=== PATIENT | female | born 1975 | race Caucasian/White ===

== ENCOUNTER 2022-02-12 10:29 | Emergency (ER) | payer OTHER, SELFPAY ==
--- NOTE | ~2022-02-12 | CT_ITS ---
EXAMINATION: CT abdomen pelvis w con DATE: 02/12/2022 11:52 INDICATION: Abdominal pain, rectal pressure TECHNIQUE: Computed tomography (CT) of the abdomen and pelvis was performed with 100 CC Omnipaque 350 intravenous contrast. Automated exposure control and iterative reconstruction technique were employe d. Exam dose: 788.79 mGy-cm total exam DLP. COMPARISON: None. FINDINGS: Minimal bilateral lower lung atelectasis. Normal heart size. No pericardial or pleural effu christian. Small sliding hiatal hernia. Approximately 7.7 mm focal area of hypoattenuation in the right hepatic lobe (series 3 image 18 and 1 9). Indeterminate 16 x 12 mm hypoattenuating lesion of the anterior left lateral aspect of the lateral se gment of the left hepatic lobe. Recommend comparison with any prior available CT abdomen examinations or perhaps liver MRI if no prior studies are available. The liver is otherwise unremarkable. The gallbladder is present. No gallbladder wall thickening or pericholecystic fluid or fat stranding. No bile duct or pancreatic duct dilatation. No pancreatic mass lesion or calcification. Normal morphology of the adrenal glands. No renal mass lesion or urinary tract calculus or hydroureteronephrosis. Normal caliber of the abdominal aorta. No intraperitoneal or retroperitoneal or pelvic mass lesion or adenopathy or ascites. The urinary bladder appears unremarkable. Status post hysterectomy. There are multiple small bowel air-fluid levels fluid distended but nondilated small bowel, suggestin g enteritis or mild adynamic ileus. There is a prominent amount of fecal material in the rectum and c olon. No bowel obstruction is evident. Normal appendix. No intraperitoneal free air. Probable bone island of L1 vertebral body. No suspicious osteolytic or osteoblastic lesions are sugge sted. IMPRESSION: Prominent amount of fecal material in the rectum and colon, without obstruction Nondilated fluid containing small bowel with multiple small bowel air-fluid levels; consider enteriti s or mild adynamic ileus Normal appendix Small sliding hiatal hernia There are couple of nonspecific hypoattenuating hepatic lesions; recommend comparison with any prior available CT examination. If not available, consider MR examination for further evaluation Reviewed, dictated and finalized at [facility] Reviewed, dictated and finalized at [facility] IMPRESSION: Prominent amount of fecal material in the rectum and colon, withou t obstruction Nondilated fluid containing small bowel with multiple small bowel air-fluid lev els; consider enteritis or mild adynamic ileus Normal appendix Small sliding hiatal hernia There are couple of nonspecific hypoattenuating hepatic lesions; recommend comp arison with any prior available CT examination. If not available, consider MR e xamination for further evaluation
[2022-02-12 10:36] VITALS: BP 150/99; PULSE 87; RESP 221; TEMP 37.8; O2SAT 100
[2022-02-12 11:11] LABS: Basophils Percent Auto 0.5 % (0.2-1.2); Eosinophils Absolute Auto 0.1 K/mm3 (0-0.3); Eosinophils Percent Auto 1.1 % (0-4.4); Hematocrit 41.3 % (37.0-47.0); Hemoglobin 13.4 g/dL (12.0-15.0); Immature Granulocyte Absolute 0.02 K/mm3 (0.00-0.031); Immature Granulocyte Percent A 0.3 % (0-0.5); Lymphocytes Absolute Auto 0.99 K/mm3 (0.9-3.2); Lymphocytes Percent Auto 15.8 % (18.3-44.2); Mean Corpuscular HGB Conc 32.4 g/dl (32-36); Mean Corpuscular Hemoglobin 31.2 pg (26-34); Mean Corpuscular Volume 96.3 fl (80-100); Monocytes Absolute Auto 0.6 K/mm3 (0.1-0.6); Monocytes Percent Auto 9.9 % (2.6-8.5); Neutrophils Absolute Auto 4.5 K/mm3 (1.3-6.7); Neutrophils Percent Auto 72.4 % (45.5-73.1); Platelet Count Result 228 k/mm3 (150-375); Red Blood Count 4.29 M/mm3 (4.2-5.4); Red Cell Distribution Width 12.2 % (11.5-14.5); White Blood Count 6.3 K/mm3 (4.5-10.0)
[2022-02-12 11:14] LABS: Alanine Aminotransferase 21 U/L (6-35); Albumin Level 4.7 g/dL (3.5-5.1); Alkaline Phosphatase 81 U/L (38-126); Anion Gap 10 mmol/L (8-16); Aspartate Amino Transferase 31 U/L (14-36); Bilirubin,Total 0.5 mg/dL (0.2-1.3); Blood Urea Nitrogen 7 mg/dL (7-17); Calcium 8.9 mg/dL (8.4-10.2); Carbon Dioxide 29 mmol/L (22-30); Chloride 101 mmol/L (98-107); Estimated CRCL calculation 91 ml/min; Estimated Glomerular Filt Rate > 60; Glucose 117 mg/dL (65-110); Lipase 74 U/L (23-300); Sodium 140 mmol/L (137-145)
[2022-02-12 11:27] VITALS: BP 140/84; PULSE 77; RESP 16; O2SAT 97
--- NOTE | 2022-02-12 11:28 | ED.ABDPAIN ---
HPI - Abdominal Pain General Chief Complaint: Abdominal Pain Stated Complaint: abd pain Time Seen by Provider: 02/12/22 11:15 Source: RN notes reviewed History of Present Illness HPI narrative: Patient presents emergency room from home for abdominal pain. Patient states pain is located in the bilateral lower abdomen described as a pressure nature that radiates into the rectum. She states that she is felt constipated for the past 2 days and went to have a bowel movement today and pain increased after trying to have a bowel movement. She denies any fevers or chills she denies any nausea or vomiting states she has not taken anything for the pain this morning. States she did take a stool softener yesterday Related Data Home Medications Medication Instructions Recorded Confirmed bupropion HCl 300 mg 24 hr tablet, 300 mg PO QAM 03/09/19 03/09/19 extended release (Wellbutrin XL) buspirone 30 mg tablet 30 mg PO BID 03/09/19 03/09/19 estradiol 0.05 mg/24 hr semiweekly 1 patch transdermal 2XW 03/09/19 03/09/19 transdermal patch gabapentin 300 mg capsule 300 mg PO TID PRN Pain 03/09/19 03/09/19 trazodone 50 mg tablet 50 mg PO HS 03/09/19 03/09/19 Allergies Allergy/AdvReac Type Severity Reaction Status Date / Time No Known Allergies Allergy Verified 03/09/19 15:01 Review of Systems Review of Systems: Gen.: Denies fevers or chills ENT: Denies congestion Respiratory: Denies shortness of breath or cough CV: Denies chest pain or palpitations GI: See HPI Musculoskeletal: Denies back pain or muscle pain Neuro: Denies numbness, tingling, weakness or focal weakness Skin: Denies rash Except as documented, all other systems reviewed and negative [facility] Past Medical History Medical History (Updated 02/12/22 @ 13:53 by Rubén Patton DO) Generalized anxiety disorder Social History Social History Smoking status: Former smoker Tobacco type: cigarettes Second hand tobacco smoke exposure: No Smoking end date: 04/01/03 Alcohol intake: current Alcohol use details: socially Substance use: never Substance use type: does not use Gender identity (if verbalized by the patient): Female Exam Narrative: APPEARANCE: No acute distress, nontoxic, resting in bed HEENT: Normocephalic, atraumatic, OMM RESPIRATORY: No respiratory distress, clear to auscultation bilaterally with no rhonchi wheezing or rales CARDIOVASCULAR: RRR s murmur ABDOMINAL: Soft nondistended tender palpation right lower quadrant and left lower quadrant no tenderness in right upper quadrant and left upper quadrant no rebound or guarding MUSCULOSKELETAl: Moves all extremities. No clubbing, cyanosis or edema. NEURO: Awake and alert. Following commands, speech normal, no focal deficits SKIN:: Warm, dry. Normal Color PSYCHIATRIC: Normal affect/mood Course Course Emergency Course: Patient given enema in emergency department with large bowel movement. Patient states he is feeling much better following this repeat abdominal exam is soft and nontender Patient states that they are feeling much better at this time. States abdominal pain has resolved. Repeat abdominal exam shows the patient's abdomen to be soft and nontender. Discussed with patient results of workup and diagnosis. Discussed need for follow-up with primary care physician, reasons to return to the emergency department in proper use of medication. Patient understands and agrees to current treatment plan. I did discuss with patient CT scan discussed CT results showing nonspecific hypoattenuating lesions need for follow-up as an outpatient for further imaging in agreement Vital Signs Vital signs: Vital Signs Temperature 100.0 F H 02/12/22 10:36 Pulse Rate 87 02/12/22 10:36 Respiratory Rate 221 H 02/12/22 10:36 Blood Pressure 150/99 H 02/12/22 10:36 Pulse Oximetry 100 02/12/22 10:36 Oxygen Delivery Room Air 02/12/22 10:36
[2022-02-12] MEDS: KETOROLAC 30 MG/ML VIAL (*BKC) IV PUSH (11:36)
[2022-02-12] MEDS: SODIUM CHLORIDE 0.9% IV 1,000 ML 999 ML IV CONT (11:36)
[2022-02-12 12:40] LABS: Appearance Urine Clear (Clear); Bilirubin Urine Negative (Negative); Blood Urine Negative (Negative); Color Urine Light Yellow (Yellow); Glucose Urine UA Negative (Negative); Ketones Urine Negative (Negative); Leukocyte Esterase Ur Negative LEU/UL (Negative); Nitrate Urine Negative (Negative); Protein Urine Negative (Negative); Urobilinogen Urine 0.2 mg/dL (<2.0)
[2022-02-12 12:55] LABS: Add Urine Microscopic? NO
[2022-02-12 14:05] VITALS: BP 119/73; PULSE 82; RESP 16; TEMP 37.4; O2SAT 98
== END 2022-02-12 14:12 | disposition home or self-care (01) ==
PROVIDERS: Emergency Provider Emergency Medicine
DX: K59.00 Constipation, unspecified (principal); R10.32 Left lower quadrant pain; R10.31 Right lower quadrant pain; F41.1 Generalized anxiety disorder; Z87.891 Personal history of nicotine dependence; K76.9 Liver disease, unspecified; K44.9 Diaphragmatic hernia without obstruction or gangrene; R93.3 Abnormal findings on diagnostic imaging of other parts of digestive tract
CPT/HCPCS: 36415; 74177; 80053; 81003; 83690; 85025; 96361; 96374; 99284; J1885; J7030; Q9967